=== PATIENT | male | born 1960 | race Caucasian/White ===

== ENCOUNTER → 2017-01-12 | Outpatient (CLI) | payer OTHER ==
[~2017-01-12] MED LIST: AMLODIPINE BESYL5 MG; BYSTOLIC5 MG; CARAFATE1 G; CLINDAMYCIN HC300 MG PO; LORTAB 10-5001 EACH; MELOXICAM15 MG PO; NEXIUM PO; VOLTAREN75 MG
--- NOTE | ~2017-01-12 | US5 ---
[facility] A Service of [facility] & [facility] RADIOLOGY TEXT RESULTS PATIENT: VERENICE ODEN LOCATION: [facility] : [birth year] UNIT #: [id number] AGE: [address]: Josse Nicole MD SEX: M ORDER DR: [id number] [facility] [address] [place], [place] [address] [id number] O MR#: [id number] Acc #: [id number] NAME: VERENICE ODEN : 1960 SEX: M STUDY DATE/TIME: 01/12/2017 9:17 UNIT: [facility] ROOM: STUDY DESCRIPTION: US Abdominal Complete Attending Physician: Josse Nicole III, M.D. Referring Physician: Josse Nicole III, M.D. Ordering Physician: Josse Nicole III, M.D. Primary Care Physician: Bridger Clemente M.D. MEDICAL IMAGING REPORT This report is preliminary unless electronic signature is present EXAM Ultrasound abdomen, complete. HISTORY Hepatitis C virus. Diabetes, hypertension, hyperlipidemia. TECHNIQUE Real time ultrasonography abdomen performed. COMPARISON STUDIES 12/07/2009 FINDINGS Proximal aorta measures 2.49 cm x 1.59 cm. Inferior vena cava is patent. Visualized portions of pancreas unremarkable. Some portions of pancreatic tail obscured by bowel gas artifact. Pancreas could be further evaluated with CT if it would assist in patient management. The liver is heterogeneous in echotexture with subtle nodularity of contour. This may be a reflection of underlying cirrhosis in this patient with a history of hepatitis C. The liver is mildly enlarged measuring 17.2 cm in craniocaudal extent. No focal suspicious parenchymal abnormality is suggested. The portal vein is patent with normal direction of flow. The right kidney measures 10.14 cm in greatest length and is normal in appearance. Multiple gallstones in otherwise unremarkable gallbladder. No pericholecystic fluid or biliary ductal dilatation. Common bile duct measures 2.8 mm in diameter. Left kidney measures 11.45 cm in greatest length. No hydronephrosis or nephrolithiasis. No cystic or solid mass lesion and no perinephric fluid collection. The spleen measures 10.8 cm in greatest length and is normal in appearance. IMPRESSION 1. Cirrhotic morphology of the liver without focal suspicious STS. [facility] A Service of [facility] & [facility] RADIOLOGY TEXT RESULTS PATIENT: VERENICE ODEN LOCATION: [facility] : 64 UNIT #: [id number] AGE: [address]: Josse Nicole MD SEX: M ORDER DR: parenchymal abnormality. 2. Liver mildly enlarged. 3. Gallstones. 4. Gallbladder otherwise unremarkable. No biliary ductal dilatation. 5. Bilateral kidneys normal in appearance. Spleen normal in appearance. 6. Visualized pancreas unremarkable but some portions are obscured by bowel gas artifact. If it would assist in management, pancreas could be further evaluated with CT. 7. On the images provided, the aorta appears of normal caliber. Portal vein is patent with normal direction of flow. Inferior vena cava patent. Dictated by... Marck Oshea M.D. THIS IS AN ELECTRONICALLY VERIFIED REPORT Marck Oshea M.D. at 01/13/2017 3:50 PM Jelly TD: 01/12/2017 12:04 JOB #: [id number] MEDICAL IMAGING REPORT Page 1 of 1 COPY
== END | disposition home or self-care (01) ==
LOC: CGUS 08:36
DX: B18.2 Chronic viral hepatitis C (principal); E11.9 Type 2 diabetes mellitus without complications; I10 Essential (primary) hypertension; E78.5 Hyperlipidemia, unspecified; K80.20 Calculus of gallbladder without cholecystitis without obstruction; R16.0 Hepatomegaly, not elsewhere classified
CPT/HCPCS: 76700

== ENCOUNTER → 2017-01-21 | Outpatient (CLI) | payer OTHER ==
[2017-01-21 10:31] LABS: HEMATOCRIT 44.8 % (38.0-50.0); HEMOGLOBIN 15.2 gm/dL (13.0-16.0)
== END | disposition home or self-care (01) ==
LOC: CSSDAY 09:32
PROVIDERS: Specialist
DX: E83.111 Hemochromatosis due to repeated red blood cell transfusions (principal)
CPT/HCPCS: 85014; 85018; 99195; G0463

== ENCOUNTER → 2017-01-28 | Outpatient (CLI) | payer OTHER ==
[2017-01-28 10:27] LABS: HEMATOCRIT 42.1 % (38.0-50.0); HEMOGLOBIN 14.2 gm/dL (13.0-16.0)
== END | disposition home or self-care (01) ==
LOC: CSSDAY 09:53
PROVIDERS: Specialist
DX: E83.111 Hemochromatosis due to repeated red blood cell transfusions (principal)
CPT/HCPCS: 36415; 85014; 85018; 99195; G0463

== ENCOUNTER → 2017-02-04 | Outpatient (CLI) | payer OTHER ==
[2017-02-04 10:18] LABS: HEMATOCRIT 37.7 % (38.0-50.0); HEMOGLOBIN 12.6 gm/dL (13.0-16.0)
== END | disposition home or self-care (01) ==
LOC: CSSDAY 09:46
PROVIDERS: Specialist
DX: E83.119 Hemochromatosis, unspecified (principal)
CPT/HCPCS: 85014; 85018; 99195; G0463

== ENCOUNTER → 2017-02-11 | Outpatient (CLI) | payer OTHER ==
[2017-02-11 10:04] LABS: HEMATOCRIT 35.7 % (38.0-50.0); HEMOGLOBIN 12.1 gm/dL (13.0-16.0)
== END | disposition home or self-care (01) ==
LOC: CSSDAY 09:30
PROVIDERS: Specialist
DX: E83.111 Hemochromatosis due to repeated red blood cell transfusions (principal)
CPT/HCPCS: 36415; 85014; 85018; 99195; G0463

== ENCOUNTER → 2017-05-19 | Outpatient (CLI) | payer OTHER ==
--- NOTE | ~2017-05-19 | MR2 ---
[facility] A Service of [facility] RADIOLOGY TEXT RESULTS PATIENT: VERENICE ODEN LOCATION: [facility] : 64 UNIT #: [id number] AGE: [address]: Josse Nicole MD SEX: M ORDER DR: [id number] [facility] [place], [place] [address] [id number] O MR#: [id number] #: [id number] NAME: VERENICE ODEN : 1960 SEX: M STUDY DATE/TIME: 05/19/2017 8:29 UNIT: [facility] ROOM: STUDY DESCRIPTION: MR Abdomen WWo Cont Attending Physician: Josse Nicole III, M.D. Referring Physician: Josse Nicole III, M.D. Ordering Physician: Josse Nicole III, M.D. Primary Care Physician: Jeff Meehan M.D. MRI CENTER REPORT This report is preliminary unless electronic signature is present. EXAM MRI abdomen. INDICATIONS Cirrhosis. Observation for hepatocellular carcinoma. Elevated AFP. Abnormal right upper quadrant ultrasound. TECHNIQUE Multiplanar MRI of the abdomen with and without contrast (20 mL MultiHance IV contrast). COMPARISON Right quadrant ultrasound, 01/12/2017. FINDINGS The liver is morphologically cirrhotic. There is no hepatic mass. Intrahepatic and extrahepatic bile ducts normal in caliber. The hepatic vasculature is widely patent. There are gallstones in the gallbladder. The pancreas, spleen, adrenal glands, and kidneys are within normal limits. The bowel is not dilated. There is a left upper quadrant splenorenal shunt. The umbilical vein is recannulated. No ascites. IMPRESSION 1. Cirrhosis with stigmata of portal hypertension. 2. No evidence hepatocellular carcinoma. 3. Patent hepatic vasculature. 4. Cholelithiasis. Dictated by... [facility] A Service [facility] RADIOLOGY TEXT RESULTS PATIENT: VERENICE ODEN LOCATION: [facility] : 64 UNIT #: [id number] AGE: [address]: Josse Nicole MD SEX: M ORDER DR: Srinivasan Morse M.D. THIS IS AN ELECTRONICALLY VERIFIED REPORT Srinivasan Morse M.D. at 05/19/2017 6:38 PM CELIA/tera TD: 05/19/2017 18:27 JOB #: [id number] MRI CENTER REPORT Page 1 of 1 COPY
[2017-05-19 12:21] LABS: POC - GFR >60.0 mL/min (>60)
== END | disposition home or self-care (01) ==
LOC: CMRI 07:55
PROVIDERS: Specialist
DX: K74.60 Unspecified cirrhosis of liver (principal); R77.2 Abnormality of alphafetoprotein; R93.5 Abnormal findings on diagnostic imaging of other abdominal regions, including retroperitoneum; K80.20 Calculus of gallbladder without cholecystitis without obstruction; K76.6 Portal hypertension
CPT/HCPCS: 74183; 82565; A9577